=== PATIENT | female | born 2000 | race Caucasian/White ===

== ENCOUNTER 2021-08-23 03:09 | Emergency (ER) | payer BC ==
[~2021-08-23] VITALS: Ht 157.5 cm; Wt 66.1 kg
[2021-08-23 04:54] LABS: CLARITY URINE CLOUDY (CLEAR); COLOR URINE DARK YELLOW (YELLOW); KETONES URINE TRACE (NEGATIVE); LEUKOCYTE ESTERASE URINE 2+ (NEGATIVE); NITRITE URINE NEGATIVE (NEGATIVE); OCCULT BLOOD URINE 2+ (NEGATIVE); PROTEIN URINE 2+ (NEGATIVE); SPECIFIC GRAVITY URINE 1.026 (1.005-1.030)
[2021-08-23] MEDS ORDERED: ONDANSETRON HCL 4MG TABLET PO ONE (05:30)
[2021-08-23] MEDS ORDERED: ACETAMINOPHEN WITH CODEINE 300/30MG TABLET PO ONE (05:30)
[2021-08-23] MEDS ORDERED: OXYCODONE HCL/ACETAMINOPHEN 5/325MG TABLET PO ONE (08:00)
[2021-08-23] MEDS ORDERED: TOPUD PO (08:12)
[2021-08-23] MEDS ORDERED: NITR100C PO (08:12)
[2021-08-23 08:37] VITALS: BP 105/67
== END 2021-08-23 08:39 | disposition home or self-care (01) ==
LOC: ER 03:09
DX: N39.0 Urinary tract infection, site not specified (principal); K80.20 Calculus of gallbladder without cholecystitis without obstruction; M27.49 Other cysts of jaw; Z98.890 Other specified postprocedural states
CPT/HCPCS: 74176; 76705; 76830; 76856; 81003; 81025; 87086; 99284; Q0162